=== PATIENT | female | born 1970 | race Caucasian/White ===

== ENCOUNTER 2020-07-14 05:48 | Emergency (ER) | payer OTHER ==
[2020-07-14] MEDS ORDERED: IBUPROFEN800 MG PO (06:28)
[2020-07-14] MEDS ORDERED: CYCLOBENZAPRINE10 MG PO (06:28)
[2020-07-14] MEDS ORDERED: PERCOCET 5-3251 EACH PO (06:28)
== END 2020-07-14 06:41 | disposition home or self-care (01) ==
LOC: FER 05:48
DX: M54.42 Lumbago with sciatica, left side (principal); X50.0XXA Overexertion from strenuous movement or load, initial encounter
CPT/HCPCS: 96372; 99283; J1040; J1885